=== PATIENT | male | born 1965 | race American Indian/Alaskan Native ===

== ENCOUNTER 2018-05-20 21:57 | Emergency (ER) | payer BC, OTHER ==
[~2018-05-20] VITALS: Ht 177.8 cm; Wt 91.0 kg
[~2018-05-20 21:57] MED LIST: HYDR-4353 PO; ONDA4TAB6 PO
[2018-05-20 22:46] LABS: ALANINE AMINOTRANSFERASE 34 U/L (12-78); ALBUMIN 4.3 G/DL (3.4-5.0); ALBUMIN/GLOBULIN RATIO 1.2 (1.1-1.5); ALKALINE PHOSPHATASE 62 IU/L (46-116); AMYLASE 51 U/L (25-115); ANION GAP 12 (8-16); ASPARTATE AMINO TRANSFERASE 17 U/L (10-37); BILIRUBIN,TOTAL 0.6 MG/DL (0.1-1.0); BLOOD UREA NITROGEN 22 MG/DL (7-18); BUN/CREATININE RATIO 18.3 (5.4-32.0); CALCIUM 9.6 MG/DL (8.5-10.1); CHLORIDE 101 MMOL/L (99-107); GLUCOSE 139 MG/DL (70-104); LIPASE 121 U/L (73-393); POTASSIUM 3.4 MMOL/L (3.5-5.1); SODIUM 139 MMOL/L (135-145); TOTAL CARBON DIOXIDE 26.2 MMOL/L (24-32); TOTAL PROTEIN 7.8 G/DL (6.4-8.2); eGFR 64 ML/MIN
[2018-05-20] MEDS ORDERED: ketorolac tromethamine 15mg/ml inj. IM ONE (22:55)
[2018-05-20] MEDS ORDERED: ondansetron 4mg rapidly disintigrating tab PO ONE (22:55)
[2018-05-20 23:02] LABS: CLARITY,URINE CLOUDY (Clear); COLOR,URINE YELLOW (Yellow); GLUCOSE, URINE NEGATIVE (Neg); KETONES,URINE NEGATIVE (Neg); LEUKOCYTE ESTERASE ,URINE NEGATIVE (Neg); NITRITES, URINE NEGATIVE (Neg); OCCULT BLOOD,URINE NEGATIVE (Neg); PH,URINE 7.5 (4.8-8.0); PROTEIN,URINE NEGATIVE (Neg); UROBILINOGEN,URINE 0.2 E.U/dL (0.2-1.0)
[2018-05-20 23:04] LABS: BASOPHILS % (AUTO) 0.4 % (0-1); EOSINOPHILS # (AUTO) 0.1 X10'3 (0-0.9); EOSINOPHILS % (AUTO) 2.6 % (0-6); HEMATOCRIT 45.9 % (42.0-52.0); HEMOGLOBIN 15.4 g/dl (14.0-17.9); LYMPHOCYTES # (AUTO) 2.4 X10'3 (1.1-4.8); LYMPHOCYTES % (AUTO) 45.2 % (21-51); MEAN CORPUSCULAR HEMOGLOBIN 30.7 PG (27.0-31.0); MEAN CORPUSCULAR HGB CONC 33.6 % (33.0-36.5); MEAN CORPUSCULAR VOLUME 91.3 FL (78-98); MEAN PLATELET VOLUME 7.8 FL (7.4-10.4); MONOCYTES # (AUTO) 0.5 X10'3 (0-0.9); MONOCYTES % (AUTO) 8.8 % (2-12); NEUTROPHILS # (AUTO) 2.3 X10'3 (1.8-7.7); PLATELET COUNT 273 X10'3 (140-440); RED BLOOD COUNT 5.02 X10'6 (4.70-6.10); RED CELL DISTRIBUTION WIDTH 12.5 % (11.5-14.5); WHITE BLOOD COUNT 5.3 X10'3 (4.5-11.0)
[2018-05-20] MEDS ORDERED: ondansetron/PF 4mg/2ml inj IV ONE (23:05)
[2018-05-20] MEDS ORDERED: ketorolac tromethamine 15mg/ml inj. IV ONE (23:05)
[2018-05-20 23:06] LABS: UA COLLECTION TYPE CLN CATCH MIDSTREAM
[2018-05-20 23:07] LABS: AMORPHOUS PHOSPHATES 4+; BACTERIA,URINE NONE SEEN /HPF (Neg); RBC,URINE NONE SEEN /HPF (0-2); SQUAMOUS EPITHELIAL CELL,UR FEW /LPF (FEW); WBC,URINE NONE SEEN /HPF (0-4)
[2018-05-21] MEDS ORDERED: ONDA4TAB6 PO (00:57)
[2018-05-21] MEDS ORDERED: IBUP-1986 PO (00:57)
[2018-05-21 01:08] LABS: TROPONIN I < 0.04 NG/ML (0.0-0.05)
[2018-05-21 01:13] VITALS: BP 119/74
== END 2018-05-21 01:16 | disposition home or self-care (01) ==
LOC: ER 21:57
DX: K80.50 Calculus of bile duct without cholangitis or cholecystitis without obstruction (principal); Z79.899 Other long term (current) drug therapy
CPT/HCPCS: 36415; 74176; 80053; 81001; 82150; 83690; 84484; 85025; 85610; 96374; 96375; 99284; J1885; J2405

== ENCOUNTER 2019-12-10 17:47 | Emergency (ER) | payer BC, OTHER ==
[~2019-12-10] VITALS: Ht 177.8 cm; Wt 75.0 kg
[~2019-12-10 17:47] MED LIST changes: +IBUP-1986 PO
[2019-12-10 17:53] VITALS: BP 128/93
== END 2019-12-10 18:17 | disposition home or self-care (01) ==
LOC: ER 17:48
DX: S60.451A Superficial foreign body of left index finger, initial encounter (principal); Z98.890 Other specified postprocedural states; Z79.899 Other long term (current) drug therapy; W45.8XXA Other foreign body or object entering through skin, initial encounter; Y93.89 Activity, other specified; Y92.89 Other specified places as the place of occurrence of the external cause; Y99.8 Other external cause status
CPT/HCPCS: 99284